=== PATIENT | male | born 1955 | race Caucasian/White ===

== ENCOUNTER 2019-02-02 08:11 | Day surgery (SDC) | payer OTHER ==
[~2019-02-02] VITALS: Ht 182.9 cm; Wt 88.0 kg
[~2019-02-02 08:11] MED LIST: ASPI81TA26 PO; FLON1SPR; SIMV20TA2 PO
[2019-02-02] MEDS ORDERED: NS 1,000 ML IV ONE (09:00)
--- NOTE | 2019-02-02 09:34 | ROOR ---
Patient Name: Eduard Hudson Procedure Date: 02/02/2019 9:08 AM Date of : 1955 Age: 63 Room: [facility] Gender: Male Note Status: Finalized Procedure: Colonoscopy Indications: High risk colon cancer surveillance: Personal history of colonic polyps, Last colonoscopy: July 2013 Providers: Justus COOPER MD Referring MD: PRASAD HAYWOOD DO Requesting Provider: Medicines: Monitored Anesthesia Care Complications: No immediate complications. Procedure: Pre-Anesthesia Assessment: - The heart rate, respiratory rate, oxygen saturations, blood pressure, adequacy of pulmonary ventilation, and response to care were monitored throughout the procedure. The Colonoscope was introduced through the anus and advanced to the cecum, identified by appendiceal orifice and ileocecal valve. The colonoscopy was performed without difficulty. The patient tolerated the procedure well. The quality of the bowel preparation was good. Findings: The perianal and digital rectal examinations were normal. Three sessile polyps were found in the sigmoid colon and splenic flexure. The polyps were diminutive in size. These polyps were removed with a cold snare. Resection and retrieval were complete. Mild sigmoid diverticulosis and small internal hemorrhoids. The exam was otherwise without abnormality on direct and retroflexion views. Impression: - Three diminutive polyps in the sigmoid colon and at the splenic flexure, removed with a cold snare. Resected and retrieved. - Mild sigmoid diverticulosis and small internal hemorrhoids. - The examination was otherwise normal on direct and retroflexion views. Recommendation: - Repeat colonoscopy in 3 - 5 years for surveillance based on pathology results. - Await pathology results. - Telephone endoscopist for pathology results in 2 weeks. Justus Cooper MD Justus COOPER MD 02/02/2019 9:34:07 AM Electronically signed by Justus COOPER MD Number of Addenda: 0 Note Initiated On: 02/02/2019 9:08 AM Estimated Blood Loss: Estimated blood loss: none.
[2019-02-02 09:50] VITALS: BP 114/76
[2019-02-02] MEDS ORDERED: PROPOFOL 200 MG/20 ML VIAL As Ordered ONE (10:56)
[2019-02-02] MEDS ORDERED: LIDOCAINE 2% INJ 100 MG/5 ML SDV (FOR ANES.) As Ordered ONE (10:56)
== END 2019-02-02 10:08 | disposition home or self-care (01) ==
LOC: M OPP 08:11
PROVIDERS: ATTEND Internal Medicine Gastroenterology
DX: Z12.11 Encounter for screening for malignant neoplasm of colon (principal); Z86.010 Personal history of colon polyps; D12.5 Benign neoplasm of sigmoid colon; D12.3 Benign neoplasm of transverse colon; K57.90 Diverticulosis of intestine, part unspecified, without perforation or abscess without bleeding; K64.8 Other hemorrhoids; E78.5 Hyperlipidemia, unspecified; R01.1 Cardiac murmur, unspecified; M54.89 Other dorsalgia; M54.2 Cervicalgia; Z87.81 Personal history of (healed) traumatic fracture; Z79.82 Long term (current) use of aspirin; Z79.899 Other long term (current) drug therapy

== ENCOUNTER → 2020-01-24 | Outpatient (CLI) | payer OTHER ==
[~2020-01-24] MED LIST changes: -SIMV20TA2 PO; +SIMV20TA22 PO
== END ==
LOC: M LABSMTC 10:23
PROVIDERS: ATTEND Pediatrics
DX: Z03.818 Encounter for observation for suspected exposure to other biological agents ruled out (principal); Z11.59 Encounter for screening for other viral diseases

== ENCOUNTER → 2020-04-15 | Outpatient (CLI) | payer OTHER | LOC: M LABSMTC 13:12 | PROVIDERS: ATTEND Pediatrics | DX: Z20.828 Contact with and (suspected) exposure to other viral communicable diseases (principal) ==

== ENCOUNTER → 2020-07-08 | Outpatient (CLI) | payer SELFPAY | LOC: M LABSMTC 09:54 | PROVIDERS: ATTEND Pediatrics | DX: Z20.828 Contact with and (suspected) exposure to other viral communicable diseases (principal) ==

== ENCOUNTER → 2020-08-08 | Outpatient (CLI) | payer SELFPAY | LOC: M LABSMTC 09:35 | PROVIDERS: ATTEND Pediatrics | DX: Z20.822 Contact with and (suspected) exposure to COVID-19 (principal) ==

== ENCOUNTER → 2020-09-23 | Outpatient (CLI) | payer SELFPAY | LOC: M LABSMTC 09:31 | PROVIDERS: ATTEND Pediatrics | DX: Z20.822 Contact with and (suspected) exposure to COVID-19 (principal) ==

== ENCOUNTER → 2021-06-16 | Outpatient (REF) | LOC: M LABSMTC 09:21 | PROVIDERS: ATTEND Pediatrics | DX: Z20.822 Contact with and (suspected) exposure to COVID-19 (principal) ==

== ENCOUNTER → 2021-07-10 | Outpatient (REF) | LOC: M LABSMTC 09:35 | PROVIDERS: ATTEND Pediatrics | DX: Z11.52 Encounter for screening for COVID-19 (principal) ==

== ENCOUNTER → 2022-04-23 | Outpatient (CLI) | payer MEDICARE, OTHER | LOC: M LAB 09:11 | PROVIDERS: ATTEND Allergy & Immunology Allergy | DX: T78.1XXA Other adverse food reactions, not elsewhere classified, initial encounter (principal) ==

== ENCOUNTER 2023-06-15 07:09 | Day surgery (SDC) | payer MEDICARE, OTHER ==
[~2023-06-15] VITALS: Ht 180.3 cm; Wt 88.5 kg
[~2023-06-15 07:09] MED LIST changes: +LIDOCAINE 2% 100MG/5ML SDV (FOR ANES.) As Ordered ONE; +LORA-930 PO; +propofoL 200 MG/20 ML VIAL As Ordered ONE
[2023-06-15] MEDS ORDERED: GLUCAGON INJ 1MG VIAL As Ordered ONE (08:37)
[2023-06-15 08:48] VITALS: TEMP 97.8
[2023-06-15 09:10] VITALS: BP 111/72; O2SAT 99
== END 2023-06-15 09:20 | disposition home or self-care (01) ==
LOC: M OPP 07:09
PROVIDERS: ATTEND Internal Medicine Gastroenterology
DX: Z12.11 Encounter for screening for malignant neoplasm of colon (principal); Z86.010 Personal history of colon polyps; K63.5 Polyp of colon; K57.30 Diverticulosis of large intestine without perforation or abscess without bleeding; K64.8 Other hemorrhoids; Z87.891 Personal history of nicotine dependence; Z79.02 Long term (current) use of antithrombotics/antiplatelets; Z79.899 Other long term (current) drug therapy
CPT/HCPCS: 45385; 88305; J1610